=== PATIENT | female | born 1960 | race Caucasian/White ===

== ENCOUNTER 2022-02-24 13:53 | Inpatient (IN) | payer OTHER, SELFPAY ==
[2022-02-23] VITALS (41 sets, daily range): BP systolic 82–146; BP diastolic 53–88; PULSE 46–91; RESP 14–18; TEMP 35.9–37; O2SAT 87–100; BMI 43.7
[2022-02-23] MEDS: SODIUM CHLORIDE 0.9 % (FLUSH) 10 ML SYRINGE IVF (11:55)
[2022-02-23] MEDS: OXYCODONE (CR) 10 MG TAB.ER.12H PO ×2 (11:55→12:14)
[2022-02-23] MEDS: LACTATED RINGERS 1000 ML 1,000 ML 100 ML IV (11:55)
[2022-02-23] MEDS: ACETAMINOPHEN 500 MG TABLET 1000 MG PO ×2 (11:55→18:31)
[2022-02-23] MEDS: MIDAZOLAM HCL 1 MG/ML inj IVP (12:00)
--- NOTE | 2022-02-23 12:12 | W.PM.NB ---
Nerve Block Nerve Block Time Seen by Provider: :59 Date Seen: 02/23/22 Type of block requested by surgeon for post-operative analgesia: geniculars and adductor canal Side: left Time out performed: Yes Verification of patient name: Yes Verification of date of : Yes Site marking: site marked Name of person performing procedure: PHANI Martin Assistants, if any: STAN Shukla Continuous monitoring Was continuous monitoring of O2 sat, B/P, surgery scheduling coordinator, recorded every 15 minutes?: Yes Procedure Checklist: sterile prep, needles and gloves Ultrasound guided. Images saved: Yes Medications given in 5ml increments after negative aspiration: Marcaine and Ropivicaine %: 0.5 mL: 30 Needle gauge: 20 Decadron (mg): 10 Precedex (mcg): 20 Patient tolerated procedure well: Yes Block Charges Block Charge (with Pro Fee): Femoral Nerve Use of Ultrasound Machine for Block: Yes- US Guidance/pain block
[2022-02-23] MEDS: fentaNYL 100 MCG/2 ML inj IVP (12:14)
--- NOTE | 2022-02-23 12:15 | SUR.PREOP ---
TIME?OUT:?1200 PT/RN/MDA?VERIFICATION?OF?SURGICAL?SITE,?PROCEDURE,?AND?CONSENT OBTAINED?PRIOR?TO?INVASIVE?PROCEDURE.
--- NOTE | 2022-02-23 13:55 | CRLHL7_ITS ---
For Patients: As a result of the Century Cures Act, medical imaging exams and procedure reports are released immediately into your electronic medical record. You may view this report before your referring provider. If you have questions, please contact your health care provider. INDICATION: Follow up knee arthroplasty. TECHNIQUE: Two portable postoperative images of the left knee. FINDINGS: Left knee arthroplasty. Patellar resurfacing. The components are adequately aligned and well seated. Air within the soft tissues and joint space related to the surgery. IMPRESSION: Postsurgical change from a left knee arthroplasty. The components are adequately aligned and well seated. Dictated by Dio Franklin MD @ 02/23/2022 3:43:11 PM (Electronically Signed)
--- NOTE | 2022-02-23 13:58 | PM.ORPRC ---
Procedure Note Date of procedure: 02/23/22 Procedure: SURGEON: Rony Berrios MD GRAIN GRADER: Diana Portillo PA-C, Vicente Mosquera PA-C PREOPERATIVE DIAGNOSIS: Left knee osteoarthritis POSTOPERATIVE DIAGNOSIS: Left knee osteoarthritis NAME OF OPERATION: Left total knee arthroplasty ANESTHESIA: Spinal ESTIMATED BLOOD LOSS: 0 mL COMPLICATIONS: None SPECIMENS: None DRAINS: None PREOPERATIVE ANTIBIOTICS: Ancef 3 grams IMPLANTS: 1. J&J Attune # 7 posterior stabilized femur 2. # 5 fixed-bearing tibia 3. # 7 posterior stabilized, 5 mm fixed-bearing polyethylene 4. 38 patella INDICATIONS: The patient is a 62-year-old with a longstanding history of severe, unrelenting left knee pain secondary to end-stage (grade IV) left knee osteoarthritis. Despite appropriate nonoperative management, including activity modification, anti-inflammatories, [id number] pain medication, bracing, physical therapy, and injections they continue to have pain and disability. Operative intervention was offered. The risks, benefits and expected outcomes were discussed in detail. These included but were not limited to: Infection, bleeding, injury to blood vessel or nerve, venous thromboembolism. All questions were answered to their satisfaction. Use of an fast food assistant restaurant manager was necessary throughout the case for patient positioning and safety, soft tissue retraction, and closure. PROCEDURE: Spinal anesthesia was administered. The patient was placed supine on the operating table. The fast food assistant restaurant manager made sure the patient was positioned appropriately. The lower extremity was prepped and draped in the usual sterile fashion. The limb was exsanguinated with the Josh bandage. The pneumatic tourniquet was inflated to 300 mmHg. A standard anterior incision was made with the knee in flexion. Subcutaneous dissection was sharply taken through fascial layer #1. Full-thickness medial and lateral flaps were elevated. The fast food assistant restaurant manager retracted the soft tissues and protected them throughout the case. A standard medial parapatellar approach was made. The patella was everted. The infrapatellar fat pad was preserved. The menisci and cruciate ligaments were sharply d?brided. Marginal osteophytes were d?brided with the rongeur. The drill was used to penetrate the femoral canal. The canal was aspirated and irrigated with pulse lavage. The intramedullary femoral guide was placed for a 5-degree valgus cut, removing 10 mm off the distal femur. The saw was used to make the cut. Whitesides line and the trans epicondylar axis were marked. The femoral sizing guide was pinned onto the distal femur. Three degrees of external rotation nicely parallels the transepicondylar axis. Pins were placed for posterior referencing. The four-in-one cutting guide was pinned onto the distal femur. The anterior, posterior, and chamfer cuts were made. The fast food assistant restaurant manager protected the collateral ligaments. The box cutting guide was pinned. The box cuts were made. The boxed trial was placed and was an excellent fit. Drill holes for the lugs were made. Attention was then turned to the proximal tibia. The extramedullary tibial guide was placed for a neutral varus/valgus cut with 5 degrees of posterior slope, removing 2 mm based off the medial tibial surface. The fast food assistant restaurant manager protected the collateral ligaments and the neurovascular bundle. The saw was used to make the cut. Trial components were placed. The knee was nicely balanced in both flexion and extension. The trial components were removed. The tray was placed in appropriate rotation, parallel to our tibial cutting pins. It was pinned by the fast food assistant restaurant manager and the drill and the punch were used. The tray was removed. The punch was used again. We placed a bone plug in the femoral canal. Attention was then turned to the patella. [place] patellar thickness was 22.5 mm. The lobster claw resection guide was used with the 9.5 mm gopi. The saw was used to make the cut. Drill holes were made by the fast food assistant restaurant manager. The trial was placed and was an excellent fit. Cancellous surfaces were irrigated with pulse lavage and thoroughly dried by the fast food assistant restaurant manager. We cemented the tibial component, then the femoral component. We impacted the 5 mm polyethylene onto the tibial tray. The knee was brought into full extension. We then cemented the patellar component. Excessive cement was removed. The cement was allowed to harden. The knee was taken through a range of motion and was found to be nicely balanced in both flexion and extension. The patella tracks centrally. The fast food assistant restaurant manager did a three minute dilute Betadine solution soak. The fast food assistant restaurant manager irrigated the wound with 3 liters of normal saline via pulse lavage. The fast food assistant restaurant manager reapproximated the extensor mechanism with #1 Vicryl in an interrupted [id number] fashion. The fast food assistant restaurant manager then ran the extensor mechanism with a #1 PDO Stratafix. The fast food assistant restaurant manager closed the subcutaneous tissues with a 3-0 Stratafix and the skin with a running 3-0 Stratafix in a subcuticular fashion. Glue was used to seal the skin. The fast food assistant restaurant manager placed a dry dressing, JAMIL stocking, and Polar Care. Sponge and needle counts were correct x2. The patient tolerated the procedure well. There were no apparent complications. They were carefully transferred to the hospital bed and taken to the postanesthesia care unit in satisfactory condition. PLAN: The patient will be mobilized with physical therapy. Aspirin will be used for DVT prophylaxis. They will be discharged to home once medically appropriate.
--- NOTE | 2022-02-23 15:11 | W.ANESCHARGE ---
Anesthesia Charges Start Date/Time Anesthesia Start Date: 02/23/22 Anesthesia Start Time: 12:19 Stop Date/Time Anesthesia Stop Date: 02/23/22 Anesthesia Stop Time: 15:08 Summary Emergency: No
[2022-02-23] MEDS: HYDROmorphone 0.5 mg/0.5 ml inj IVP (16:16)
[2022-02-23] MEDS: OXYCODONE 5 MG TABLET PO ×3 (17:18→22:08)
--- NOTE | 2022-02-23 17:22 | PM.IMCN1 ---
Date of Consult Patient: [facility] Patient Consult date: 02/23/22 Requesting Physician: Orthopedics Primary Care Provider: Rakel Lind MD Consult Narrative Reason for consult: Assist with postoperative management of underlying medical conditions Narrative: Sanaz Mercado is a 62 year old woman who successfully undergoes an elective left total knee arthroplasty today due to severe symptomatic left gonarthrosis. Review of Systems Status of ROS: Reports: 10 or more systems reviewed and unremarkable except as noted in History and below Narrative: Denies chest heaviness, pressure, tightness, or pain. Denies syncope or near-syncope. Denies orthostasis, lightheadedness, vertigo. Denies cough, dyspnea at rest, dyspnea with exertion, paroxysmal nocturnal dyspnea, or orthopnea. Denies edema. Denies nausea or vomiting. Denies palpitations or fluttering. Aside from the knee pain she has no other myalgias or arthralgias. Denies recent illness of any sort, fevers, rigors, diaphoresis. Denies trauma, travel, injury. Denies weight gain or weight loss. Denies cold or heat intolerance. No dysuria, urgency, frequency, or hematuria. Denies diarrhea or constipation. [facility] Medical History (Updated 02/23/22 @ 17:30 by Jimy Montes MD) Actinic keratosis due to exposure to sunlight Anxiety Diverticulosis of colon (01/10/21) Mixed anxiety depressive disorder Morbid obesity with body mass index (BMI) of 45.0 to 49.9 in adult Polyp of colon Surgical History (Updated 02/23/22 @ 17:30 by Jimy Montes MD) Status post gastric bypass for obesity (2005) Status post right knee replacement (04/2021) Family History Mother Breast cancer, Onset Age: 62 Father Myocardial infarction, Onset Age: 58 Stroke, Onset Age: 65 Cancer Maternal Grandfather Colon cancer, Onset Age: 85 Social History Narrative: , housekeeping laundry worker, 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, lives with mom and dog Does not drink alcohol Non-smoker Walking an animal- 2x/week, walks dog 2 blocks Smoking Status: Never smoker How often do you have a drink containing alcohol: never AUDIT-C Alcohol total score: 0 Non-prescribed substance use: denies use Caffeine: Yes (with chocolate only) Little interest or pleasure in doing things: not at all Feeling down, depressed, or hopeless: not at all Meds Home Medications and Allergies Allergies Allergy/AdvReac Type Severity Reaction Status Date / Time latex Allergy Intermediate Hives, Verified 02/10/22 15:46 face and throat irritation amoxicillin Allergy Mild Hives Verified 02/10/22 15:46 NSAIDS (Non-Steroidal Allergy Mild Gatric Verified 02/10/22 15:46 Anti-Inflamma bypass Exam Narrative: Exam Narrative: Appears comfortable, no acute distress. Friendly, articulate, cooperative. Mood and affect are congruent. Alert, oriented to self, place, time, situation. Vision and hearing are grossly normal. Midline nasal septum, normal nasal mucosa. Edentulous in the maxilla with dentition in good repair on the mandible. Cranial nerves 3-12 are grossly normal. Neck is supple. Midline trachea. Normal thyroid. No JVD or hepatojugular reflux. No carotid bruits. No lymphadenopathy. Lungs are clear to auscultation without wheezing, rhonchi, or rales. Heart tones with regular rhythm, normal S1-S2, without murmur, gallop, or rub. Abdomen with active bowel sounds, soft, nontender. No lower extremity edema. Capillary refill less than 3 seconds in digits of upper and lower extremities. Aside from the surgical limb, no focal motor neurologic deficits otherwise. Skin is warm, dry, intact. Const: Vital Signs, click to edit/add: Vital Signs - 24 hr 02/23/22 11:25 02/23/22 12:00 02/23/22 12:05 Temperature 97.6 F Pulse Rate 84 75 67 Pulse Rate [Right Pulse Oximeter] Respiratory Rate 16 16 16 Blood Pressure 128/85 146/82 H 134/74 Blood Pressure [Le ft Arm] Pulse Oximetry 96 100 100 Oxygen Delivery Me thod Room Air Nasal Cannula Nasal Cannula Oxygen Flow Rate 3 3 02/23/22 12:10 02/23/22 12:15 02/23/22 15:10 Temperature Pulse Rate 80 65 60 Pulse Rate [Right Pulse Oximeter] Respiratory Rate 16 16 Blood Pressure 135/85 126/79 106/68 Blood Pressure [Le ft Arm] Pulse Oximetry 100 100 88 Oxygen Delivery Me thod Nasal Cannula Nasal Cannula Oxygen Flow Rate 3 3 02/23/22 15:11 02/23/22 15:12 02/23/22 15:13 Temperature Pulse Rate 60 57 L 58 L Pulse Rate [Right Pulse Oximeter] Respiratory Rate Blood Pressure 99/72 Blood Pressure [Le ft Arm] Pulse Oximetry 88 94 89 Oxygen Delivery Me thod Oxygen Flow Rate 02/23/22 15:14 02/23/22 15:15 02/23/22 15:16 Temperature Pulse Rate 47 L 48 L 53 L Pulse Rate [Right Pulse Oximeter] Respiratory Rate Blood Pressure Blood Pressure [Le ft Arm] Pulse Oximetry 94 91 87 L Oxygen Delivery Me thod Oxygen Flow Rate 02/23/22 15:17 02/23/22 15:18 02/23/22 15:19 Temperature Pulse Rate 57 L 52 L Pulse Rate [Right Pulse Oximeter] Respiratory Rate Blood Pressure 99/53 L Blood Pressure [Le ft Arm] Pulse Oximetry 87 L 98 88 Oxygen Delivery Me thod Oxygen Flow Rate 02/23/22 15:20 02/23/22 15:21 02/23/22 15:22 Temperature Pulse Rate 56 L 56 L Pulse Rate [Right Pulse Oximeter] Respiratory Rate Blood Pressure 109/64 Blood Pressure [Le ft Arm] Pulse Oximetry 98 95 98 Oxygen Delivery Me thod Oxygen Flow Rate 02/23/22 15:23 02/23/22 15:24 02/23/22 15:25 Temperature Pulse Rate 51 L 52 L 49 L Pulse Rate [Right Pulse Oximeter] Respiratory Rate Blood Pressure 125/60 Blood Pressure [Le ft Arm] Pulse Oximetry 95 97 95 Oxygen Delivery Me thod Oxygen Flow Rate 02/23/22 15:26 02/23/22 15:27 02/23/22 15:28 Temperature Pulse Rate 51 L 56 L 56 L Pulse Rate [Right Pulse Oximeter] Respiratory Rate Blood Pressure 125/60 Blood Pressure [Le ft Arm] Pulse Oximetry 97 89 93 Oxygen Delivery Me thod Oxygen Flow Rate 02/23/22 15:29 02/23/22 15:30 02/23/22 15:31 Temperature Pulse Rate 51 L 49 L 51 L Pulse Rate [Right Pulse Oximeter] Respiratory Rate Blood Pressure Blood Pressure [Le ft Arm] Pulse Oximetry 98 92 100 Oxygen Delivery Me thod Oxygen Flow Rate 02/23/22 15:32 02/23/22 15:33 02/23/22 15:34 Temperature Pulse Rate 60 48 L 63 Pulse Rate [Right Pulse Oximeter] Respiratory Rate Blood Pressure 115/68 Blood Pressure [Le ft Arm] Pulse Oximetry 98 88 93 Oxygen Delivery Me thod Oxygen Flow Rate 02/23/22 15:35 02/23/22 15:44 02/23/22 16:00 Temperature 96.6 F L 96.7 F L Pulse Rate 51 L 52 L Pulse Rate [Right Pulse Oximeter] 47 L Respiratory Rate 14 16 Blood Pressure Blood Pressure [Le ft Arm] 105/58 L 82/65 L Pulse Oximetry 96 99 Oxygen Delivery Me thod Room Air Room Air Oxygen Flow Rate 02/23/22 16:15 02/23/22 16:58 02/23/22 16:45 Temperature Pulse Rate Pulse Rate [Right Pulse Oximeter] 46 L 70 71 Respiratory Rate 16 16 16 Blood Pressure Blood Pressure [Le ft Arm] 97/64 101/70 101/65 Pulse Oximetry 98 98 96 Oxygen Delivery Me thod Room Air Room Air Room Air Oxygen Flow Rate Documenting provider has reviewed patient's vital signs: yes Assessment and Plan Assessment and plan (1) Left knee pain: Status: Acute (2) Osteoarthritis of left knee: Status: Acute (3) Status post left knee replacement: Problem comment: 02/23/2022, [facility], Dr. Berrios Status: Acute (4) Mixed anxiety depressive disorder: Status: Chronic (5) Morbid obesity with body mass index (BMI) of 45.0 to 49.9 in adult: Status: Chronic Plan 1. Reviewed impression with patient. Answered her questions. 2. Resume her antianxiety medicine. 3. Will follow with Orthopedic surgery while she is in hospital. 4. Agree with postoperative venous thromboembolism prophylaxis efforts. 5. Agree with perioperative antibiotic prophylaxis.
--- NOTE | 2022-02-23 17:56 | PC.NURSE ---
PATIENT TO FLOOR AROUND 1540 FROM PACU, ALERT AND ORIENTED, PLEASANT AND COOPERATIVE, INITIALLY NO PAIN IN LEFT KNEE PATIENT EXPERIENCING NUMBNESS RELATED TO SPINAL/BLOCK PAIN THEN INCREASED TO 3/10 INITIALLY BEING MANAGED WITH PRN DILAUDID AND NOW BEING MANAGED WITH PRN OXYCODONE PATIENT TOLERATING FLUIDS, REGULAR DIET ORDERED FOR SUPPER, DRESSING TO LEFT KNEE CDI.
[2022-02-23] MEDS: CEFAZOLIN 3 GM in 0.9 % SODIUM CHLORIDE 100 ml 100 ML IVPB (18:31)
[2022-02-23] MEDS: SENNOSIDES 1 TAB TABLET 2 TAB PO (21:16)
[2022-02-23] MEDS: ASPIRIN 81 MG TABLET EC PO (21:17)
[2022-02-24] VITALS (7 sets, daily range): BP systolic 126–159; BP diastolic 77–88; PULSE 70–97; RESP 16–20; TEMP 36.5–36.9; O2SAT 95–99
[2022-02-24] MEDS: OXYCODONE 5 MG TABLET PO ×11 (00:15→23:35)
[2022-02-24] MEDS: ACETAMINOPHEN 500 MG TABLET 1000 MG PO ×4 (00:15→23:36)
[2022-02-24] MEDS: CEFAZOLIN 3 GM in 0.9 % SODIUM CHLORIDE 100 ml 100 ML IVPB ×2 (02:46→11:34)
[2022-02-24] MEDS: HYDROmorphone 0.5 mg/0.5 ml inj IVP ×2 (06:02→09:12)
--- NOTE | 2022-02-24 06:34 | PC.NURSE ---
Shift note : Pt alert, uses call light, up to BR w/ SBA and walker, moving slowly. Rating pain 7-8/10 before Oxycodone and 4-5/10 after Oxycodone, which pt states is a comfortable level although states only lasts 2 hours. Although this am, Oxycodone was given @ 0500 for pain 8/10 without any relief as pain 10/10 @0600, so IV Dilaudid was administered along w/ getting pt up in recliner w/ relief verbalized. Pt with bruising in lower back from spinal placement, states pain is now radiating from there into her groin and down her L leg. Drsg to L knee CDI, CMS intact. Plans to DC home today w/ family assistance.
[2022-02-24 07:14] LABS: Basophils Percent Auto 0.1 % (0.0-3.0); Hematocrit 40.3 % (33.0-51.0); Hemoglobin* 13.1 gm/dL (12.0-16.0); Immature Granulocytes Pct Auto 0.2 %; Lymphocytes Percent Auto 6.8 % (20-44); Mean Corpuscular HGB Conc 33 gm/dL (32-36); Mean Corpuscular Hemoglobin 29 pg (26-34); Mean Corpuscular Volume 89 fL (80-100); Monocytes Percent Auto 7.9 % (0.0-11.0); Platelet Count* 205 K/uL (140-440); RDW Coefficient of Variation % 12.8 % (11.5-15.5); Red Blood Count 4.52 m/uL (4.00-5.20); White Blood Count* 12.73 K/uL (4.50-11.00)
[2022-02-24 07:24] LABS: Slide Review Reflex No
[2022-02-24 07:27] LABS: Potassium* 4.3 mmol/L (3.6-5.1); Prothrombin Time 13.8 Seconds; Sodium* 134 mmol/L (135-149)
[2022-02-24 07:30] LABS: Blood Urea Nitrogen* 15 mg/dL (7-30); Creatinine* 0.6 mg/dL (0.5-1.5); Est. Creatinine Clearance* 56.72; Estimated Glomerular Filt Rate 101 ml/min
[2022-02-24] MEDS: SENNOSIDES 1 TAB TABLET 2 TAB PO ×2 (08:05→21:15)
[2022-02-24] MEDS: ASPIRIN 81 MG TABLET EC PO ×2 (08:05→21:15)
[2022-02-24] MEDS: PARoxetine 20 MG TABLET PO (08:05)
--- NOTE | 2022-02-24 08:19 | P.ORPN_ITS ---
Subjective Subjective Time Seen by Provider: 07:30 Date Seen: 02/24/22 Principal diagnosis: S/P day 1 left TKA Interval history: Sanaz is doing well this morning and is resting comfortably in her recliner. She reports concerns regarding her pain. She had right TKA done in April and explains this pain is much worse than her contralateral TKA. Also complains of low back pain, new since her surgery. Admits to chest pain briefly since her surgery than improved after sitting upright and taking an antacid. Denies: SOB. Has not yet been seen by PT. Patient brought her own Juan Antonio stockings ([place]ov[place] in color); she did not like our white Juan Antonio stockings with her previous surgery. Ortho Exam Narrative Exam Narrative: Incision/Dressing: Dressing appears clean and dry. No drainage present. Mepilex intact. Left knee appears moderately swollen but supple with no obvious erythema, fluctuance or excessive warmth. No ecchymosis or erythematous streak ing. Warmth around the wound is appropriate. Ice is being utilized as needed. CMS: Intact distally with 2+ Dorsalis pedis and Posterior Tibial pulses. 5/5 motor strength dorsal and plantar flexion. Confirmed sensation distally. Intact straight leg raise. Calf: Bilateral calves are supple, with no swelling, pain, tenderness, erythema, discoloration or coolness to the touch. Constitutional: Patient is alert and oriented x3. Patient is in no acute distress and converses without labored breathing. Patient is able to make decisions and demonstrates good insight. Patient is pleasant and cooperative. Affect is full range and appropriate for the circumstances. Other: Admits to mild/moderate proximal left thigh pain - pointing to the location of tourniquet. Const Vital Signs, click to edit/add: Vital Signs - 24 hr 02/23/22 11:25 02/23/22 12:00 02/23/22 12:05 Temperature 97.6 F Pulse Rate 84 75 67 Pulse Rate [Right Pulse Oximeter] Respiratory Rate 16 16 16 Blood Pressure 128/85 146/82 H 134/74 Blood Pressure [Left Arm] Pulse Oximetry 96 100 100 Oxygen Delivery Method Room Air Nasal Cannula Nasal Cannula Oxygen Flow Rate 3 3 02/23/22 12:10 02/23/22 12:15 02/23/22 15:10 Temperature Pulse Rate 80 65 60 Pulse Rate [Right Pulse Oximeter] Respiratory Rate 16 16 Blood Pressure 135/85 126/79 106/68 Blood Pressure [Left Arm] Pulse Oximetry 100 100 88 Oxygen Delivery Method Nasal Cannula Nasal Cannula Oxygen Flow Rate 3 3 02/23/22 15:11 02/23/22 15:12 02/23/22 15:13 Temperature Pulse Rate 60 57 L 58 L Pulse Rate [Right Pulse Oximeter] Respiratory Rate Blood Pressure 99/72 Blood Pressure [Left Arm] Pulse Oximetry 88 94 89 Oxygen Delivery Method Oxygen Flow Rate 02/23/22 15:14 02/23/22 15:15 02/23/22 15:16 Temperature Pulse Rate 47 L 48 L 53 L Pulse Rate [Right Pulse Oximeter] Respiratory Rate Blood Pressure Blood Pressure [Left Arm] Pulse Oximetry 94 91 87 L Oxygen Delivery Method Oxygen Flow Rate 02/23/22 15:17 02/23/22 15:18 02/23/22 15:19 Temperature Pulse Rate 57 L 52 L Pulse Rate [Right Pulse Oximeter] Respiratory Rate Blood Pressure 99/53 L Blood Pressure [Left Arm] Pulse Oximetry 87 L 98 88 Oxygen Delivery Method Oxygen Flow Rate 02/23/22 15:20 02/23/22 15:21 02/23/22 15:22 Temperature Pulse Rate 56 L 56 L Pulse Rate [Right Pulse Oximeter] Respiratory Rate Blood Pressure 109/64 Blood Pressure [Left Arm] Pulse Oximetry 98 95 98 Oxygen Delivery Method Oxygen Flow Rate 02/23/22 15:23 02/23/22 15:24 02/23/22 15:25 Temperature Pulse Rate 51 L 52 L 49 L Pulse Rate [Right Pulse Oximeter] Respiratory Rate Blood Pressure 125/60 Blood Pressure [Left Arm] Pulse Oximetry 95 97 95 Oxygen Delivery Method Oxygen Flow Rate 02/23/22 15:26 02/23/22 15:27 02/23/22 15:28 Temperature Pulse Rate 51 L 56 L 56 L Pulse Rate [Right Pulse Oximeter] Respiratory Rate Blood Pressure 125/60 Blood Pressure [Left Arm] Pulse Oximetry 97 89 93 Oxygen Delivery Method Oxygen Flow Rate 02/23/22 15:29 02/23/22 15:30 02/23/22 15:31 Temperature Pulse Rate 51 L 49 L 51 L Pulse Rate [Right Pulse Oximeter] Respiratory Rate Blood Pressure Blood Pressure [Left Arm] Pulse Oximetry 98 92 100 Oxygen Delivery Method Oxygen Flow Rate 02/23/22 15:32 02/23/22 15:33 02/23/22 15:34 Temperature Pulse Rate 60 48 L 63 Pulse Rate [Right Pulse Oximeter] Respiratory Rate Blood Pressure 115/68 Blood Pressure [Left Arm] Pulse Oximetry 98 88 93 Oxygen Delivery Method Oxygen Flow Rate 02/23/22 15:35 02/23/22 15:44 02/23/22 16:00 Temperature 96.6 F L 96.7 F L Pulse Rate 51 L 52 L Pulse Rate [Right Pulse Oximeter] 47 L Respiratory Rate 14 16 Blood Pressure Blood Pressure [Left Arm] 105/58 L 82/65 L Pulse Oximetry 96 99 Oxygen Delivery Method Room Air Room Air Oxygen Flow Rate 02/23/22 16:15 02/23/22 16:30 02/23/22 16:45 Temperature Pulse Rate Pulse Rate [Right Pulse Oximeter] 46 L 70 71 Respiratory Rate 16 16 16 Blood Pressure Blood Pressure [Left Arm] 97/64 101/70 101/65 Pulse Oximetry 98 98 96 Oxygen Delivery Method Room Air Room Air Room Air Oxygen Flow Rate 02/23/22 17:00 02/23/22 17:30 02/23/22 19:00 Temperature 97.0 F L Pulse Rate Pulse Rate [Right Pulse Oximeter] 71 78 84 Respiratory Rate 16 16 16 Blood Pressure Blood Pressure [Left Arm] 103/66 111/74 118/81 Pulse Oximetry 97 98 98 Oxygen Delivery Method Room Air Room Air Room Air Oxygen Flow Rate 02/23/22 22:00 02/23/22 21:00 02/23/22 22:00 Temperature 98.6 F 98.2 F 98.4 F Pulse Rate Pulse Rate [Right Pulse Oximeter] 91 80 85 Respiratory Rate 16 18 18 Blood Pressure Blood Pressure [Left Arm] 112/74 121/76 125/88 Pulse Oximetry 97 95 97 Oxygen Delivery Method Room Air Room Air Room Air Oxygen Flow Rate 02/24/22 00:00 02/24/22 03:00 Temperature 98.4 F Pulse Rate Pulse Rate [Right Pulse Oximeter] 85 84 Respiratory Rate 16 Blood Pressure Blood Pressure [Left Arm] 126/88 Pulse Oximetry 99 Oxygen Delivery Method Room Air Oxygen Flow Rate Documenting provider has reviewed patient's vital signs: yes Assessment and Plan Assessment and plan (1) Left knee pain: Status: Acute (2) Osteoarthritis of left knee: Status: Acute (3) Status post left knee replacement: Problem details: DOS: 02/23/2022, Dr. Berrios Status: Acute Assessment and Plan: - In regards to her poor pain management, recommend frequent icing, Oxycodone and acetaminophen PRN. May consider adding Vistaril or Celebrex if no improvement. Upon discharge, I encouraged Corinne to stay ahead of her pain instead of playing catch-up. She will notice an increase in pain at night and after PT. Take 1-2 tablets of Oxycodone an hour before bed and physical therapy (assuming she has a ride). Patient stated understanding. - Complete 23 hour perioperative antibiotics. - PT/OT consults for education and assistance. - Social consult for discharge planning. - Weight bear as tolerated. - DVT prophylaxis includes: aspirin 81 mg BID x 1 month. Also bilateral knee high Juan Antonio stockings (x 1 month), frequent ambulation and ankle pumps when sedentary. - Anticipate patient will be discharged to home this afternoon if the patient remains medically stable, pain is controlled and is safe with ambulation. Corinne reports she had numerous family members that will be assisting at home. - Return to clinic in 1 week for a wound check with myself. Mepilex dressing will be removed at this appointment. Remove sooner if dressing becomes saturated. - Return to clinic in [address] Berrios. - Prescribed analgesics as needed. Patient is content with current narcotic medications. Minimize narcotic pain medication use; wean off and discontinue as soon as possible. - Phone Orthopedics with any questions or concerns. (4) Mixed anxiety depressive disorder: Status: Chronic (5) Morbid obesity with body mass index (BMI) of 45.0 to 49.9 in adult: Status: Chronic
[2022-02-24] MEDS: hydrOXYzine pamoate 25 MG CAPSULE PO ×2 (14:53→19:45)
[2022-02-24] MEDS: GABAPENTIN 100 MG CAPSULE 200 MG PO ×2 (14:53→21:15)
[2022-02-24] MEDS: MAG HYDROX/ALUMINUM HYD/SIMETH 30 ML ORAL.SUSP PO (14:57)
[2022-02-24] MEDS: KETOROLAC 30 MG/ML inj IVP ×2 (15:56→22:29)
--- NOTE | 2022-02-24 22:22 | PC.NURSE ---
Shift [id number]- Patient rates pain at 7-8/10 at beginning of shift this afternoon, and is 6-7/10 tonight. She does comment tonight that we must have found the right combination of pain medications. She holds conversation calmly, moves and ambulates well. NSAID on allergy list, however patient states this is due to history of gastric bypass. She walks in the hallway with gait belt, walker and assist of 1 this evening.
[2022-02-25] MEDS: OXYCODONE 5 MG TABLET PO ×4 (01:57→10:40)
[2022-02-25 03:00] VITALS: BP 132/64; PULSE 80; RESP 18; TEMP 36.4; O2SAT 94
--- NOTE | 2022-02-25 04:43 | PC.NURSE ---
[id number]: patient up with assist X1 walker and gait belt. pain rated 5-7/10 well controlled with PRN meds. incision c/d/i. IS encouraged while awake. appears to have slept between cares overnight.
[2022-02-25] MEDS: ACETAMINOPHEN 500 MG TABLET 1000 MG PO (05:30)
[2022-02-25 06:01] LABS: Basophils Absolute Auto 0.05 K/uL (0.00-0.30); Basophils Percent Auto 0.5 % (0.0-3.0); Eosinophils Absolute Auto 0.23 K/uL (0.00-0.50); Eosinophils Percent Auto 2.2 % (0.0-7.0); Hematocrit 38.4 % (33.0-51.0); Hemoglobin* 12.4 gm/dL (12.0-16.0); Immature Granulocytes Abs Auto 0.02 K/uL (0.00-0.30); Immature Granulocytes Pct Auto 0.2 %; Lymphocytes Absolute Auto 2.57 K/uL (0.90-2.90); Lymphocytes Percent Auto 24.9 % (20-44); Mean Corpuscular HGB Conc 32 gm/dL (32-36); Mean Corpuscular Hemoglobin 29 pg (26-34); Mean Corpuscular Volume 89 fL (80-100); Monocytes Percent Auto 12.2 % (0.0-11.0); Neutrophils Absolute Auto 6.18 K/uL (1.7-7.0); Platelet Count* 210 K/uL (140-440); RDW Coefficient of Variation % 13.2 % (11.5-15.5); Red Blood Count 4.31 m/uL (4.00-5.20); White Blood Count* 10.31 K/uL (4.50-11.00)
[2022-02-25 06:07] LABS: Slide Review Reflex No
[2022-02-25 06:16] LABS: Potassium* 3.9 mmol/L (3.6-5.1); Sodium* 136 mmol/L (135-149)
[2022-02-25 06:19] LABS: Blood Urea Nitrogen* 17 mg/dL (7-30); Creatinine* 0.8 mg/dL (0.5-1.5); Est. Creatinine Clearance* 56.72; Estimated Glomerular Filt Rate 83 ml/min
[2022-02-25 06:23] LABS: INR 1.13 (0.91-1.10); Prothrombin Time 15.1 Seconds
[2022-02-25] MEDS: ASPIRIN 81 MG TABLET EC PO (08:46)
[2022-02-25] MEDS: GABAPENTIN 100 MG CAPSULE 200 MG PO (08:46)
[2022-02-25] MEDS: SENNOSIDES 1 TAB TABLET 2 TAB PO (08:47)
[2022-02-25] MEDS: PARoxetine 20 MG TABLET PO (08:47)
[2022-02-25 09:00] VITALS: BP 124/80; PULSE 79; RESP 18; TEMP 36.6; O2SAT 97
--- NOTE | 2022-02-25 09:12 | PM.DS1 ---
DS: Providers Provider Time Seen by Provider: 08:35 Date Seen: 02/25/22 Date of admission: 02/24/22 13:53 Primary care physician: Rakel Lind MD Admitting Clinician: Johana Beaver MD Consults: 02/23/22 15:51 Consult to Occupational Therapy [CONS] Routine Comment: Reason(s) for OT Consult:: ADLs Prior to Discharge Any Restrictions?:: See Comment Comment: See nursing activity order for any restrictions. Consult to Physical Therapy [CONS] Routine Comment: Ambulate in the edouard today. Reason(s) for PT Consult:: TKA TX Protocol POD#0 Any Restrictions?:: See Comment Comment: See nursing activity order for any restrictions. Consult to Physician [CONS] Routine Comment: Consulting Provider: Hospitalists Has provider been notified: No Consult to Guest Services Coordinator [CONS] Routine Comment: Reason for Consult:: Discharge Planning Needs Attending Physician on discharge: Rony Berrios MD Date of Discharge: 02/25/22 DS: Diagnosis Discharge Diagnosis (1) Status post left knee replacement: Status: Acute Problem details: DOS: 02/23/2022, Dr. Berrios (2) Osteoarthritis of left knee: Status: Chronic (3) Morbid obesity with BMI of 40.0-44.9, adult: Status: Chronic (4) Left knee pain: Status: Acute (5) Anxiety: Status: Chronic (6) Actinic keratosis due to exposure to sunlight: Status: Chronic (7) Mixed anxiety depressive disorder: Status: Chronic (8) Status post right knee replacement: Status: Chronic Problem details: Apr 2021 DS: Summary Hospital Course Hospital Course: This is a 62-year-old female with chronic severe left gonarthrosis who underwent an elective left total knee arthroplasty 02/23/2022. Postoperatively she experienced more left knee pain than she had with her right total knee arthroplasty that was done in April of this same year. She also experienced some low back pain after this surgery. She had a brief bout of chest pain that improved immediately after sitting upright in taking antacid. She did not have any shortness of breath or any other symptoms. Her pain came under control overnight and she is feeling very well today. She is discharged home today in stable condition with adequate pain control. She has flatus but has not yet had a bowel movement. She took 1 dose of MiraLax yesterday. I recommended another dose of MiraLax upon returning home if she has not yet had a bowel movement by that time. The patient demonstrated understanding. Time Spent with Patient Time attestation: Total time spent providing and/or coordinating discharge services: Exam Narrative: Exam Narrative: General: No acute distress. Awake, alert, oriented x3. No pallor. No jaundice. Oropharynx: Clear. Mucous membranes moist. Cardiovascular: Regular rate and rhythm. No murmurs, gallops, or rubs. Respiratory: Clear to auscultation bilaterally. No wheezes or crackles. Abdomen: Bowel sounds present. Soft, nondistended, nontender. Extremities: Left knee bandage is clean, dry, and intact. Thick, non edematous ankles bilaterally. Const: Vital Signs, click to edit/add: Vital Signs - 24 hr 02/24/22 12:03 02/24/22 15:50 02/24/22 19:00 Temperature 98.0 F 98 F 97.8 F Pulse Rate [Right Pulse Oximeter] 84 97 88 Respiratory Rate 18 18 20 Blood Pressure [Le ft Arm] 146/78 H 159/82 H 139/77 Pulse Oximetry 97 98 95 Oxygen Delivery Me thod Room Air Room Air Room Air 02/24/22 23:00 02/24/22 23:00 02/25/22 03:00 Temperature 98 F 97.6 F Pulse Rate [Right Pulse Oximeter] 70 88 80 Respiratory Rate 20 20 18 Blood Pressure [Le ft Arm] 130/79 132/64 Pulse Oximetry 95 94 Oxygen Delivery Me thod Room Air Room Air Documenting provider has reviewed patient's vital signs: yes DS: Data Data Completed and Pending Completed studies during hospitalization: Ordering Physician: Rony Berrios M.D. Date of Service: 02/23/22 Procedure(s): XR knee LT 2V Accession Number(s): [id number] cc: Rakel Lind M.D.; Rony Berrios M.D.~ For Patients: As a result of the Cures Act, medical imaging exams and procedure reports are released immediately into your electronic medical record. You may view this report before your referring provider. If you have questions, please contact your health care provider. INDICATION: Follow up knee arthroplasty. TECHNIQUE: Two portable postoperative images of the left knee. FINDINGS: Left knee arthroplasty. Patellar resurfacing. The components are adequately aligned and well seated. Air within the soft tissues and joint space related to the surgery. IMPRESSION: Postsurgical change from a left knee arthroplasty. The components are adequately aligned and well seated. Dictated by Dio Franklin MD @ 02/23/2022 3:43:11 PM (Electronically Signed) Labs on day of discharge: Labs from last 24 hours 02/25/22 02/25/22 02/25/22 05:52 05:52 05:52 WBC 10.31 RBC 4.31 Hgb 12.4 Hct 38.4 MCV 89 MCH 29 MCHC 32 RDW Coeff of Amanda 13.2 Plt Count 210 Neut % (Auto) 60.0 Lymph % (Auto) 24.9 Ripley % (Auto) 12.2 H Eos % (Auto) 2.2 Baso % (Auto) 0.5 Neut # (Auto) 6.18 Lymph # (Auto) 2.57 Ripley # (Auto) 1.30 H Eos # (Auto) 0.23 Baso # (Auto) 0.05 Abs Immat Gran (auto) 0.02 Imm/Tot Granulo (auto) 0.2 INR 1.13 H Sodium 136 Potassium 3.9 BUN 17 Creatinine 0.8 Estimated Creat Clear 56.72 Estimated GFR 83 Discharge Plan Discharge Disposition: Home, Self-Care Date of Admission: 02/24/22 13:53 Attending Provider on Discharge: Rony Berrios Consulting Providers: Johana Beaver ; Jimy Montes ; Cynthia Main Primary Care Provider: Rakel Lind Condition: Stable Anticipated Discharge Date/Time: 02/25/22 09:19 Discharge Medications: New acetaminophen 500 mg capsule 500 - 1,000 mg PO Q6H MDD 4000mg per day PRN (Reason: pain) Qty: 100 0RF aspirin [Aspirin Childrens] 81 mg tablet,chewable 81 mg PO BID 30 Days Qty: 60 0RF oxycodone 5 mg Tablet 2.5 - 5 mg PO Q4-6H MDD 6 tabs per day PRN (Reason: Pain) Qty: 42 0RF Rx Instructions: Minimize. Discontinue as soon as possible sennosides [Senna Lax] 8.6 mg Tablet 17.2 mg PO BID PRN (Reason: constipation) Qty: 100 0RF Continued paroxetine HCl 20 mg tablet 20 mg PO DAILY Qty: 90 4RF Discharge Orders: Discharge Order (Routine); Ordered 02/25/22 Ordered By: Cynthia Main Activity Level: Activity as Tolerated and No strenuous activity Activity Detail: Keep dressing on for 1 week. Dressing is waterproof. May shower. Surgical glue covers the wound. Attend outpatient physical therapy if scheduled. Ice and elevate operative extremity without restriction. Wear compression stockings for 1 month post surgery. May remove for 1 hour per day. Ambulate every hour throughout the day. If you drive, Do not drive while taking narcotic pain medication. Do not drink alcohol while taking narcotic pain medication. May drive when safe to do so and have full function of the extremities, this may take 6 weeks or more. Notify Orthopedics with any questions or concerns. ([phone]) Discharge Diet: Regular Follow Up Appointments: Physical Therapy, [place] [Provider Group] - 02/28/22 3:30 pm Janeth Maldonado PA-C [Physician [employer]] - 03/01/22 12:20 pm ([facility]) Rakel Lind MD [Primary Care Provider] - (Schedule appointment as needed) Forms: Work/Release Restrictions
[2022-02-25] MEDS: KETOROLAC 30 MG/ML inj IVP (10:09)
--- NOTE | 2022-02-25 11:44 | PC.NURSE ---
VSS AND AFEBRILE. PATIENT REPORTS PAIN IS IMPROVED FROM YESTERDAY. PAIN CONTROLLED WITH OXYCODONE AND TYLENOL. UP WITH SBA, WALKER AND GAIT BELT. DRESSING CDI. SALINE LOCK DC'D. REVIEWED DC INSTRUCTIONS WITH PATIENT. REVIEWED CRYOCUFF USE WELL. PATIENT DC'D HOME VIA MOTHER.
== END 2022-02-25 10:55 | disposition home or self-care (01) | DRG 470 ==
LOC: OR 14:37 → MEDSURG 02-25 09:19
PROVIDERS: Admitting Provider Family Medicine; PCP Family Medicine; Visit Provider Orthopaedic Surgery
PROC: (CPT 27447; principal; 2022-02-23 13:00)
DX: M17.12 Unilateral primary osteoarthritis, left knee (principal); Z68.41 Body mass index [BMI] 40.0-44.9, adult; M25.562 Pain in left knee; E66.01 Morbid (severe) obesity due to excess calories; F41.8 Other specified anxiety disorders; M54.50 Low back pain, unspecified; L57.0 Actinic keratosis
CPT/HCPCS: 01402; 36415; 64447; 73560; 76942; 82565; 84132; 84295; 84520; 85025; 85610; 97110; 97116; 97161; 97165; 97535; A9270; C1776; J0690; J1100; J1170; J1885; J2250; J2405; J2704; J2795; J3010; J7120

== ENCOUNTER 2022-04-28 13:45 | Outpatient (RCR) | payer OTHER, SELFPAY | END 2022-11-02 23:59 | disposition home or self-care (01) | PROVIDERS: PCP Family Medicine; Visit Provider Orthopaedic Surgery | DX: M17.12 Unilateral primary osteoarthritis, left knee (principal); Z96.652 Presence of left artificial knee joint; Z51.89 Encounter for other specified aftercare | CPT/HCPCS: 97110; 97116; 97140; 97161; 97164 ==

== ENCOUNTER 2022-12-11 08:00 | Outpatient (RCR) | payer OTHER, SELFPAY | END 2022-12-11 10:03 | disposition home or self-care (01) | PROVIDERS: PCP Family Medicine; Visit Provider Physician Assistant | DX: S82.402A Unspecified fracture of shaft of left fibula, initial encounter for closed fracture (principal); R26.9 Unspecified abnormalities of gait and mobility; R53.1 Weakness; Z51.89 Encounter for other specified aftercare | CPT/HCPCS: 97110; 97161 ==

== ENCOUNTER 2023-05-04 09:10 | Outpatient (CLI) | payer MEDICAID, SELFPAY | END 2023-05-04 09:11 | disposition home or self-care (01) | LOC: NFLDREF 12:44 | PROVIDERS: PCP Family Medicine; Referring Provider Family Medicine; Visit Provider Family Medicine | DX: Z13.220 Encounter for screening for lipoid disorders (principal); Z13.228 Encounter for screening for other metabolic disorders | CPT/HCPCS: 80053; 80061 ==

== ENCOUNTER 2023-06-15 09:31 | Outpatient (CLI) | payer MEDICAID, SELFPAY ==
--- NOTE | 2023-06-15 09:45 | MM_ITS ---
Patient: DISHA FISHER Facility:?[facility] Patient ID:?[id number] Site Patient ID:?[id number]. Site :?[id number] Study:?XRay-Breast Bilateral 3D-06/15/2023 10:27:00 AM Ordering Physician:Saurav Final Report: BILATERAL SCREENING MAMMOGRAM WITH COMPUTER-AIDED DETECTION AND TOMOSYNTHESIS TECHNIQUE: CC and MLO views were obtained. These mammographic images have been obtained using full-field digital technique. These mammographic images were interpreted with the benefit of computer-aided detection. Breast Tomosynthesis was used in this interpretation. COMPARISON FILM: 06/13/21, 08/20/18, 03/21/17. FINDINGS: There are scattered areas of fibroglandular density. IMPRESSION: There is no radiographic evidence for malignancy. ASSESSMENT: BI-RADS Category 1: Negative RECOMMENDATION: Routine screening mammogram in 1 year. A lay language report of this examination will be provided to the patient. Nathanael Wong M.D. Diagnostic Radiologist [email or web address] DSM/sp R& Transcribed: 5:29 p.m. SP/Dictated by: Nathanael Wong MD @ 06/18/2023 9:18:00 AM Signed by:?Nathanael Wong MD @06/19/2023 5:13:19 AM (Electronic Signature)
== END 2023-06-15 09:32 | disposition home or self-care (01) ==
PROVIDERS: PCP Family Medicine; Visit Provider Family Medicine
DX: Z12.31 Encounter for screening mammogram for malignant neoplasm of breast (principal)
CPT/HCPCS: 77063; 77067

== ENCOUNTER 2024-08-22 08:23 | Outpatient (CLI) | payer MEDICAID, SELFPAY | END 2024-08-22 08:24 | disposition home or self-care (01) | LOC: NFLDREF 08-23 11:53 | PROVIDERS: PCP Family Medicine; Referring Provider Family Medicine; Visit Provider Family Medicine | DX: E78.5 Hyperlipidemia, unspecified (principal); E66.01 Morbid (severe) obesity due to excess calories; Z68.41 Body mass index [BMI] 40.0-44.9, adult; R73.09 Other abnormal glucose; R03.0 Elevated blood-pressure reading, without diagnosis of hypertension | CPT/HCPCS: 80053; 80061 ==

== ENCOUNTER 2024-09-12 13:22 | Outpatient (CLI) | payer OTHER, SELFPAY ==
[2024-09-13 21:20] LABS: HPV Source Cervical/Vag; HPV, High Risk by TMA Not Detected
== END 2024-09-12 13:23 | disposition home or self-care (01) ==
PROVIDERS: PCP Family Medicine; Visit Provider Family Medicine
DX: Z12.4 Encounter for screening for malignant neoplasm of cervix (principal); Z11.51 Encounter for screening for human papillomavirus (HPV)
CPT/HCPCS: 87624; 87625; 88141; 88142

== ENCOUNTER 2025-02-26 08:40 | Outpatient (CLI) | payer MEDICARE, SELFPAY | END 2025-02-26 08:41 | disposition home or self-care (01) | LOC: NFLDREF 03-12 16:17 | PROVIDERS: PCP Family Medicine; Referring Provider Family Medicine; Visit Provider Family Medicine | DX: I10 Essential (primary) hypertension (principal) | CPT/HCPCS: 80048 ==